=== PATIENT | male | born 1950 | race Caucasian/White ===

== ENCOUNTER 2022-06-11 05:46 | Observation (INO) | payer MEDICARE, OTHER ==
[2022-06-09 11:28] LABS: BASOPHILS # (AUTO) 0.1 (0.0-0.1); BASOPHILS % 0.9 % (0.0-1.0); EOSINOPHILS # (AUTO) 0.2 (0.0-0.4); EOSINOPHILS % 2.3 % (0.0-6.0); HEMATOCRIT 44.7 % (38.2-49.6); LYMPHOCYTES # (AUTO) 1.6 (1.0-3.2); LYMPHOCYTES % 18.8 % (18.0-39.1); MEAN CORPUSCULAR HEMOGLOBIN 30.5 pg (28-32); MEAN CORPUSCULAR HGB CONC 33.6 g/dL (31-35); NEUTROPHILS # (AUTO) 5.7 (2.1-6.9); NEUTROPHILS % 64.8 % (38.7-80.0); PLATELET COUNT 200 x10e3/uL (140-360); RED BLOOD COUNT 4.91 x10e6/uL (4.3-5.7); RED CELL DISTRIBUTION WIDTH 14.1 % (11.7-14.4)
[2022-06-09 11:43] LABS: INR 0.89; PROTHROMBIN TIME 12.3 seconds (11.9-14.5)
[2022-06-09 11:44] LABS: PARTIAL THROMBOPLASTIN TIME 30.1 seconds (23.8-35.5)
[2022-06-09 11:45] LABS: ANION GAP 14.3 mmol/L (8-16); CALCIUM 9.5 mg/dL (8.4-10.2); CREATININE, SERUM 0.81 mg/dL (0.72-1.25); POTASSIUM 4.3 mmol/L (3.5-5.1)
[~2022-06-11] VITALS: Ht 188 cm; Wt 108.9 kg
[~2022-06-11 05:46] MED LIST: DIOVAN160 MG PO; MULTI-VITAMIN1 EACH PO
[2022-06-11] MEDS ORDERED: CEFAZOLIN SODIUM 2 GM ONE (06:35)
[2022-06-11] MEDS ORDERED: Vancomycin IV 1 GM VIAL ONE (06:59)
[2022-06-11] MEDS ORDERED: THROMBIN FOR SOLN 5,000 UNIT VIAL ONE (07:00)
[2022-06-11] MEDS ORDERED: LIDOCAINE HCL/EPINEPHRINE/PF 10 ML VIAL ONE (07:00)
[2022-06-11] MEDS ORDERED: HYDROCODON-ACE1 EA12 PO (09:37)
[2022-06-11] MEDS ORDERED: PROMETHAZINE HCL (IM) 25 MG/ML VIAL IM PRN (09:45)
[2022-06-11] MEDS ORDERED: ZOLPIDEM TARTRATE 5 MG TAB PO PRN (09:45)
[2022-06-11] MEDS ORDERED: ONDANSETRON HCL INJ 2MG/ML 2ML 2 MG/ML VIAL IV PRN (09:45)
[2022-06-11] MEDS ORDERED: ACETAMINOPHEN 325 MG TAB PO PRN (09:45)
[2022-06-11] MEDS ORDERED: MORPHINE SULFATE 5 MG/ML VIAL IM PRN (09:45)
[2022-06-11] MEDS ORDERED: MAGNESIUM/ALUMINUM/SIMETHICONE 30 ML UDC PO PRN (09:45)
[2022-06-11 10:25] VITALS: BP 143/86
[2022-06-11] MEDS: LACTATED RINGER'S 1,000 ML IV SCH ×2 (11:52→21:02)
[2022-06-11] MEDS: OXYCODONE/ACETAMINOPHEN 5-325 1 EACH TABLET PO PRN ×3 (11:58→21:02)
[2022-06-11] MEDS: CARISOPRODOL 350 MG TAB PO PRN ×2 (11:58→16:03)
[2022-06-11 12:24] VITALS: BP 143/87
[2022-06-11] MEDS ORDERED: NEOSTIGMINE 1 MG/ML 10ML VIAL ONE (14:15)
[2022-06-11] MEDS ORDERED: DEXAMETHASONE SOD PHOS INJ 4 MG/ML SDV ONE (14:15)
[2022-06-11] MEDS ORDERED: LIDOCAINE HCL 2% LOCAL INJ 5 ML SDV VIAL INJ ONE (14:15)
[2022-06-11] MEDS ORDERED: SEVOFLURANE INHAL SOLN 250 ML PEN BTL ONE (14:15)
[2022-06-11] MEDS ORDERED: PROPOFOL IV EMULSION 10 MG/ML 20 ML VIAL ONE (14:15)
[2022-06-11] MEDS ORDERED: EPHEDRINE SULFATE INJ 50 MG/ML VIAL ONE (14:15)
[2022-06-11] MEDS ORDERED: ROCURONIUM BROMIDE 10 MG/ML 5ML VIAL IV ONE (14:15)
[2022-06-11] MEDS ORDERED: GLYCOPYRROLATE INJ 0.2 MG/ML VIAL ONE (14:15)
[2022-06-11] MEDS ORDERED: KETOROLAC TROMETHAMINE 30 MG/ML VIAL ONE (14:15)
[2022-06-11] MEDS ORDERED: ONDANSETRON HCL INJ 2MG/ML 2ML 2 MG/ML VIAL ONE (14:15)
[2022-06-11] MEDS ORDERED: MIDAZOLAM HCL 2 MG/2 ML VIAL ONE (14:17)
[2022-06-11] MEDS ORDERED: FENTANYL CITRATE/PF 100MCG/2 ML INJ ONE (14:17)
[2022-06-11 15:51] VITALS: BP 149/92
[2022-06-11 20:00] VITALS: BP 137/80
[2022-06-12] VITALS: BP 142/92
[2022-06-12] MEDS: HYDROMORPHONE 2MG/ML 2 MG/ML ML IV PRN ×2 (00:56→05:52)
[2022-06-12] MEDS: LACTATED RINGER'S 1,000 ML IV SCH (05:51)
[2022-06-12 06:50] VITALS: BP 132/88
[2022-06-12 07:55] VITALS: BP 138/76
[2022-06-12 08:54] VITALS: BP 138/76
[2022-06-12] MEDS ORDERED: MULTIVITAMINS/MINERALS TAB PO SCH (09:00)
[2022-06-12] MEDS ORDERED: VALSARTAN 160 MG TAB PO SCH (09:00)
[2022-06-12] MEDS: OXYCODONE/ACETAMINOPHEN 5-325 1 EACH TABLET PO PRN (09:41)
[2022-06-12] MEDS: CARISOPRODOL 350 MG TAB PO PRN (10:08)
== END 2022-06-12 10:10 | disposition home or self-care (01) ==
LOC: OR 05:46 → PACU V 09:36 → MED/SURG 10:45
PROVIDERS: ADMIT Neurological Surgery; ATTEND Neurological Surgery
DX: M47.22 Other spondylosis with radiculopathy, cervical region (principal); I10 Essential (primary) hypertension; R05.9 Cough, unspecified; G89.29 Other chronic pain; I45.10 Unspecified right bundle-branch block; Z71.82 Exercise counseling; Z71.3 Dietary counseling and surveillance; F17.210 Nicotine dependence, cigarettes, uncomplicated; Z01.810 Encounter for preprocedural cardiovascular examination; Z01.812 Encounter for preprocedural laboratory examination; Z01.818 Encounter for other preprocedural examination; Z20.822 Contact with and (suspected) exposure to COVID-19; Z79.82 Long term (current) use of aspirin; Z79.899 Other long term (current) drug therapy; Z68.30 Body mass index [BMI] 30.0-30.9, adult; Z85.038 Personal history of other malignant neoplasm of large intestine
CPT/HCPCS: 0223U; 20931; 22551; 22552; 22845; 36415; 71046; 72040; 80048; 85025; 85610; 85730; 86850; 86900; 88304; 88311; 93005; C1713 ×6; G0378 ×2; J0690 ×2; J1100; J1170; J1885; J2001; J2250; J2405; J2704; J2710; J3010; J3370; J7121 ×2; 76000